=== PATIENT | female | born 1980 | race American Indian/Alaskan Native ===

== ENCOUNTER 2020-03-04 23:49 | Emergency (ER) | payer OTHER ==
[~2020-03-04] VITALS: Ht 162.6 cm; Wt 66.2 kg
--- NOTE | 2020-03-04 23:52 | NUR ---
BIBSELF C/O FEVER AND SORE THROAT X2 DAYS. AAOX4, VITAL SIGNS STABLE. RESPIRATIONS EVEN AND UNLABORED. SKIN WARM AND INTACT. NO ACUTE DISTRESS NOTED AT THIS TIME. PENDING MD RALPH, WILL CONTINUE TO MONITOR
--- NOTE | 2020-03-05 00:25 | NUR ---
DR. TONG AT BEDSIDE FOR EVALUATION
[2020-03-05 00:26] VITALS: BP 126/84
[2020-03-05] MEDS ORDERED: IV NS 0.9% 1,000 ML BAG IV ONE (00:30)
[2020-03-05] MEDS ORDERED: ONDANSETRON HCL/PF 4 MG/2 ML VIAL IVP ONE (00:30)
[2020-03-05] MEDS ORDERED: CEFTRIAXONE 1GM BAG (ER ONLY) 1 GM/50 ML PIGGYBACK IV ONE (00:30)
[2020-03-05] MEDS ORDERED: methylPREDNISolone SOD SUCC 125 MG/2ML VIAL IV ONE (00:30)
[2020-03-05] MEDS ORDERED: MORPHINE SULFATE INJ 2 MG/ML DISP.SYRIN IV ONE (00:30)
[2020-03-05] MEDS ORDERED: ONDANSETRON HCL/PF 4 MG/2 ML VIAL ONE (00:31)
[2020-03-05] MEDS ORDERED: methylPREDNISolone SOD SUCC 125 MG/2ML VIAL ONE (00:31)
[2020-03-05] MEDS ORDERED: MORPHINE SULFATE INJ 4 MG/ML DISP.SYRIN ONE (00:31)
[2020-03-05] MEDS ORDERED: CEFTRIAXONE 1GM BAG (ER ONLY) 50 ML IV ONE (00:31)
--- NOTE | 2020-03-05 01:15 | NUR ---
PT HARDSTICK, MULTIPLE UNSUCCESSFUL ATTEMPTS TO ESTABLISH IV LINE. DR. TONG MADE AWARE
--- NOTE | 2020-03-05 01:23 | NUR ---
Patient eloped from facility. ER MD notified.
== END 2020-03-05 01:34 | disposition left against medical advice (07) ==
LOC: ER 23:50
DX: J36 Peritonsillar abscess (principal); R94.31 Abnormal electrocardiogram [ECG] [EKG]
CPT/HCPCS: J0696; J2270; J2405; J2930; J7030